=== PATIENT | male | born 1955 | race Caucasian/White ===

== ENCOUNTER → 2024-02-08 11:28 | Outpatient (REF) | payer MEDICARE, SELFPAY | LOC: HWRAD 11:28 | PROVIDERS: ATTENDING PHYSICIAN Otolaryngology; FAMILY PHYSICIAN Family Medicine | DX: J32.0 Chronic maxillary sinusitis (principal); J34.2 Deviated nasal septum | CPT/HCPCS: 70486 ==

== ENCOUNTER → 2024-03-29 09:23 | Outpatient (REF) | payer MEDICARE, SELFPAY | LOC: RAD 09:23 | PROVIDERS: ATTENDING PHYSICIAN Family Medicine; REFERRING PHYSICIAN Internal Medicine Cardiovascular Disease | DX: F17.210 Nicotine dependence, cigarettes, uncomplicated (principal) | CPT/HCPCS: 76770 ==

== ENCOUNTER 2025-04-12 15:06 | Emergency (ER) | payer OTHER, MEDICARE, SELFPAY ==
[2025-04-12] VITALS (9 sets, daily range): BP systolic 130–147; BP diastolic 72–90; BMI 27.2
[2025-04-12 16:00] LABS: INR 0.94; PT 12.9 Sec (11.4-14.6)
[2025-04-12 16:01] LABS: APTT 27.9 Sec (23.4-35.0)
[2025-04-12 16:02] LABS: ALT (SGPT) 27 U/L (0-50); AST (SGOT) 29 U/L (17-59); Albumin 4.6 g/dl (3.5-5.0); Alkaline Phosphatase 82 U/L (38-126); Blood Urea Nitrogen 18 mg/dl (9-20); Calcium 9.6 mg/dl (8.4-10.2); Carbon Dioxide 22 mmol/L (22-30); Chloride 107 mmol/L (98-107); Estimated Creatinine Clearance 93 ml/min; Glucose 93 mg/dl (70-99); Potassium 4.3 mmol/L (3.5-5.1); Sodium 137 mmol/L (135-145); Total Protein 7.5 g/dl (6.3-8.2); eGFR > 60.00
[2025-04-12 16:11] LABS: Troponin I < 0.012 ng/ml
--- NOTE | 2025-04-12 16:14 | ED.GENMED ---
History of Present Illness
General
Chief Complaint: Headache
Source: patient and spouse
Exam Limitations: none
Time Seen by Provider: 04/12/25 15:58
Nursing documentation reviewed up to this point in time: agreed with
History of Present Illness
History of Present Illness:
Note:
CHIEF COMPLAINT(S)
Headache with tingling sensations and cognitive fogginess.
HISTORY OF PRESENT ILLNESS
The patient is a 69-year-old male who reports experiencing a headache with associated tingling sensations and feelings of cognitive fogginess. These symptoms reportedly began on Tuesday and progressed to include tingling by Tuesday, prompting the
patient to notify his spouse. He describes feeling 'foggy' as the best way to articulate his symptoms. Earlier today, approximately one hour prior to presentation, while driving to his daughters home, the patient experienced tingling and felt his
pulse jump accompanied by a pin-like sensation localized to the left side of his head and face. He specifically notes that the tingling is confined to the left hemisphere of his head and face, without involvement of his limbs. The patient denies
experiencing any chest pain.
The patient went to the gym and exercised without incident and performed physical activities including shopping without difficulty. A computed tomography (CT) scan of the brain was performed, yielding normal results. The patient recounts telling a
friend about his symptoms, which the friend suggested might indicate a stroke. However, the patient denies playing golf recently due to these episodes of tingling.
PAST MEDICAL AND SURGICAL HISTORY
The patient is an active smoker, as confirmed during the interview.
SOCIAL HISTORY
Smokes cigarettes daily.
REVIEW OF SYSTEMS
- Nervous System: Reports headache with tingling sensations, cognitive fogginess, and forgetfulness such as leaving the garage door open.
- Cardiovascular: Denies chest pain. Reports feeling a pulse jump with tingling.
PHYSICAL EXAM
General: Alert, no acute distress.
Skin: Warm, dry.
Head: Normocephalic, atraumatic.
Neck: Supple, trachea midline.
Eye, Ears, Nose, Mouth and Throat: Oral mucosa moist.
Cardiovascular: Normal peripheral perfusion, No edema.
Respiratory: Respirations are non-labored.
Gastrointestinal: Abdomen nondistended.
Back: Normal range of motion, Normal alignment.
Musculoskeletal: Normal range of motion, normal strength.
Neurological: Alert and oriented to person, place, time, and situation. No focal neurological deficit observed. Coordination tests (such as finger following) performed without abnormal findings.
Psychiatric: Cooperative, appropriate mood & affect.
PROBLEM LIST
- Acute: Headache with left-sided tingling and cognitive fogginess.
- Chronic: Smoking.
PLAN
Evaluate with blood tests for further assessment. Monitor and educate regarding warning signs of a potential stroke. Advisement on smoking cessation.
DIFFERENTIAL DIAGNOSIS
The Differential Diagnosis includes, in no particular order and is not limited to:
1. Transient Ischemic Attack
2. Migraine
3. Partial Seizure
4. Hypoglycemia
5. Anxiety Disorder
6. Cervical Radiculopathy
7. Vestibular Disorders
8. Panic Attack
9. Hypertension-related episode
10. Cerebrovascular accident
EKG
My independent EKG interpretation is:
- Rhythm: Normal sinus rhythm
- Heart rate: 82 beats per minute
- MO interval: Normal
- QRS duration: Normal
- QT interval: Normal
- [place]: Normal axis
- Abnormalities: None detected (no ischemia)
CARE-UPDATE
04/12/25 - 20:38
CT angiography and CP head reveal no acute findings. Neurology recommends a 90-day course of phallivics and aspirin. Patient declined admission and opted for discharge with follow-up plans in place with neurology and primary care. No need for TNK or
IAT.
Disposition:
SUMMARY OF ENCOUNTER
The patient, a 69-year-old male, presented to the emergency department with a headache, left-sided tingling, and cognitive fogginess. Upon evaluation, symptoms such as a pin-like sensation on the left side of the head did not worsen, and no acute
life-threatening conditions were identified. A CT angiography and CT head showed no acute findings. The patient was evaluated for differential diagnoses, including transient ischemic attack (TIA) and migraine. Recommendations include phallivics and
aspirin for a 90-day course. No indication for thrombolysis (TNK) or intra-arterial therapy (IAT) was found. The patients symptoms were stable, allowing for safe discharge with reassurances and instructions.
DISPOSITION
Discharge
ASSESSMENT
Headache and cognitive fogginess, with differential diagnosis including migraine versus transient ischemic attack (TIA).
PLAN
The patient will be discharged with advice to follow up with both a primary care physician and neurology for ongoing monitoring and management. Education on recognizing the warning signs of a potential stroke was provided.
INDEPENDENT REVIEW OF LABS AND INTERPRETATION OF TESTS
- My independent interpretation of CT angiography and CT head reveals no acute findings.
- My independent EKG interpretation is normal sinus rhythm with a heart rate of 82 beats per minute, normal MO interval, QRS duration, and QT interval, with no abnormalities detected.
PATIENT EDUCATION AND COUNSELING
The patient was educated on the warning signs and symptoms of stroke and the importance of immediate medical attention if symptoms recur or worsen. Advice was given on smoking cessation to improve overall health and potentially reduce the risk of
cerebrovascular events.
FOLLOW-UP INSTRUCTIONS
The patient was instructed to schedule follow-up visits with their primary care physician and neurology as soon as possible. Return precautions were given for any recurrence or worsening of symptoms.
MEDICATION RECONCILIATION
The patient was advised on a 90-day course of aspirin, and possibly phenytoin (clarification needed on the exact name provided as phallivics is unclear).
MEDICAL DECISION MAKING
- Number and Complexity of Problems Addressed: Chronic conditions affecting care include active smoking. Differential diagnosis includes transient ischemic attack, migraine, partial seizure, hypoglycemia, anxiety disorder, cervical radiculopathy,
vestibular disorders, panic attack, hypertension-related episode, cerebrovascular accident (stroke).
- Data:
- Category 1: My independent interpretation of EKG and CT studies was completed. No abnormalities identified.
- Category 2: No additional external records reviewed or input from independent historians noted in the transcript as received.
- Risk: Consideration of Admission/Observation: Escalation of care including admission/observation was considered given the complexity and risk of the patients presenting complaint, exam findings, and/or underlying comorbidities. However, ultimately
I feel the patient is safe for outpatient management with close follow-up. Reasoning: Work-up reassuring, does not reveal any acute life/organ-threatening processes, patients symptoms well controlled upon reevaluation, re-examination is reassuring,
vitals are stable, patient agreeable with discharge, reliable for follow-up.
DIAGNOSIS
- Migraine, unspecified, with aura (G43.109).
- Transient ischemic attack, unspecified (G45.9).
Past History
Past History
ED Past Medical History: HTN, Hypercholesterolemia and Other (Back pain)
ED Past Surgical History: Orthopedic
Social History
Tobacco: Smoker
Alcohol: Daily
Personal:
Living: with family
Family History
Family History: Cancer
Phy Exam
Physical Exam
Physical Exam:
.
Course
Orders/Labs/Results
Orders:
Orders
04/12/25 15:10
CT Head W/o Iv Contrast Urgent
Comment:
Reason For Exam: severe WARE with intermit nausea
04/12/25 15:13
ECG [Electrocardiogram (*1)] Urgent
Reason for Study: Chest Pain
EKG- Treatment ONCE
04/12/25 15:23
Complete Blood Count/With Diff Urgent
Comprehensive Metabolic Panel Urgent
PT/INR [Prothrombin Time] Urgent
PTT Urgent
Troponin I Urgent
04/12/25 16:31
CT Head & Neck Angio W/wo IV Urgent
Comment:
Reason For Exam: left side facial numbness/tingling, headache
04/12/25 20:30
Clopidogrel Bisulfate [Plavix] 300 mg PO NOW STA
Abnormal Lab Results
04/12/25
15:23
WBC 12.1 H 10^3/uL
(4.8-10.8)
RBC 4.45 L 10^6/uL
(4.70-6.10)
MCV 94.8 H fL
(80.0-94.0)
MCH 32.8 H pg
(27.0-31.0)
Absolute Neuts (auto) 7.5 H 10^3/uL
(1.4-6.5)
Absolute Monos (auto) 1.1 H 10^3/uL
(0.1-0.6)
04/12/25 15:23
04/12/25 15:23
Vital Signs
Initial and Last Documented VS:
Initial Vital Signs
Temp Pulse Resp BP Pulse Ox
98.3 F 96 16 147/90 97
04/12/25 15:09 04/12/25 15:09 04/12/25 15:09 04/12/25 15:09 04/12/25 15:09
Last Documented Vital Signs
Temp Pulse Resp BP Pulse Ox
98.4 F 76 18 134/73 97
04/12/25 15:48 04/12/25 20:15 04/12/25 15:48 04/12/25 20:00 04/12/25 20:15
*Pulse Oximetry
SaO2: 97
Oxygen Mode of Delivery: Room air
Patient hypoxic: no
*Critical Care Note
Total Time (30-74mins, 75-104mins- exclusive of procedures): Not Applicable
ED Attending Note
-
Portions of this chart may have been created with voice recognition software.� Occasional wrong word or��sound alike� substitutions may have occurred due to the inherent limitations of voice recognition software.
Discharge Plan
Departure
Patient Disposition: Home (Routine Discharge)
Date of Disposition: 04/12/25
Time of Disposition: 20:31
Patient with high blood pressure during this ER visit?: Yes
Condition: Good
Discharge Problem:
Migraine
Instructions: Migraines (DC), BLOOD PRESSURE
Prescriptions:
New
clopidogrel [Plavix] 75 mg tablet
75 mg PO DAILY Qty: 89 0RF
No Action
aspirin 81 MG tablet,delayed release (DR/EC)
325 mg PO HS
Patient Comments:
TOOK THIS MORNING D/T CP
Crestor:
40 mg PO HS
Toprol XL:
1 dose PO HS
ezetimibe 10 MG tablet
10 mg PO HS
lisinopril 10 MG tablet
10 mg PO Daily Qty: 30 0RF
Referrals:
Jason Mojica MD [Family Provider, Family Practice]
Rere Rojo MD [Non-Admitting Privileges, Psychiatry] - Call in 1-3 days for appt
Interventions
Interventions:
*Risk Screen - Suicide Last Done: 04/12/25 15:49
*General Assessment Last Done: 04/12/25 15:49
*Neglect/Abuse Screening Last Done: 04/12/25 15:49
*ED- Fall Risk Assessment Last Done: 04/12/25 15:49
*ED COVID-19 Vaccine History Last Done: 04/12/25 15:49
ED- Neurological Assessment Last Done: 04/12/25 15:51
Discharge Date and Time
Print Language: BURKIN[place]
[2025-04-12 16:27] LABS: Hematocrit 42.2 % (39.0-52.0); Hemoglobin 14.6 g/dL (13.0-18.0); Mean Corp Hgb Conc. 34.6 g/dL (33.0-37.0); Mean Corpuscular Volume 94.8 fL (80.0-94.0); Nucleated Red Blood Cells % 0 % (-); Platelet Count 297 10^3/uL (130-400); Red Cell Dist. Width 13.1 % (11.5-14.5)
[2025-04-12] MEDS: PLAVIX 300 MG PO (20:56)
== END 2025-04-12 21:02 | disposition home or self-care (01) ==
LOC: EMR 15:06
PROVIDERS: Student in an Organized Health Care Education/Training Program; EMERGENCY PHYSICIAN Emergency Medicine; FAMILY PHYSICIAN Family Medicine
DX: G43.909 Migraine, unspecified, not intractable, without status migrainosus (principal); G45.9 Transient cerebral ischemic attack, unspecified; I10 Essential (primary) hypertension; E78.00 Pure hypercholesterolemia, unspecified; F17.210 Nicotine dependence, cigarettes, uncomplicated
CPT/HCPCS: 99284; 70450; 70496; 70498; 80053; 84484; 85025; 85610; 85730; 93005; Q9967

== ENCOUNTER → 2025-04-29 09:55 | Outpatient (REF) | payer OTHER, SELFPAY | LOC: HWRAD 09:55 | PROVIDERS: ATTENDING PHYSICIAN Family Medicine | DX: G45.1 Carotid artery syndrome (hemispheric) (principal) | CPT/HCPCS: 93880 ==

== ENCOUNTER → 2025-06-20 08:29 | Outpatient (REF) | payer OTHER, SELFPAY | LOC: MRI 3T 08:29 | PROVIDERS: ATTENDING PHYSICIAN Family Medicine | DX: G45.1 Carotid artery syndrome (hemispheric) (principal) | CPT/HCPCS: 70553; A9575 ==